=== PATIENT | male | born 1995 | race Caucasian/White ===

== ENCOUNTER 2024-01-19 00:10 | Emergency (ER) | payer SELFPAY ==
[~2024-01-19] VITALS: Ht 172.7 cm; Wt 104.0 kg
[2024-01-19 00:47] VITALS: TEMP 98.3; O2SAT 99
[2024-01-19] MEDS: TETANUS, DIPHTHERIA, PERTUSSIS VAC/PF 0.5ML (>10YR OLD) IM ONE (06:15)
[2024-01-19 09:11] VITALS: BP 114/80; PULSE 68; RESP 18; O2SAT 99
== END 2024-01-19 09:12 | disposition home or self-care (01) ==
LOC: ER 00:10
DX: S81.812A Laceration without foreign body, left lower leg, initial encounter (principal); W25.XXXA Contact with sharp glass, initial encounter; Y93.89 Activity, other specified; Y92.89 Other specified places as the place of occurrence of the external cause; Y99.8 Other external cause status
CPT/HCPCS: 73590; 90715; 12002; 90471; 99283; Z7610